=== PATIENT | female | born 2000 | race Caucasian/White ===

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

== ENCOUNTER 2019-06-29 21:32 | Emergency (ER) | payer BC ==
[2019-06-29] MEDS ORDERED: Ketorolac Tromethamine 30 MG/ML VIAL ONE (21:42)
[2019-06-29] MEDS ORDERED: Ibuprofen 200 MG TAB ONE (21:43)
[2019-06-29 21:56] LABS: Bilirubin Negative (Negative); Blood, Urine Negative (Negative); Clarity Clear (Clear); Glucose, Urine (Dipstick) Negative (Negative); Leukocyte Small (Negative); Nitrite Negative (Negative); Protein, Urine (Dipstick) Trace mg/dL (Neg-Trace)
[2019-06-29 21:58] LABS: Pregnancy Test - Urine (BHCG) Negative (Negative); Pregu Control Background? CLEAR/WHITE (CLR/WHITE); Pregu Control Bar Appear? YES (CONTROL BAR)
[2019-06-29 22:03] LABS: RBC/HPF 0-3 HPF (0-3)
[2019-06-29 22:04] LABS: Bacteria/HPF Rare-Few HPF (None Seen); Mucous/LPF 3+ LPF (<2+)
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
== END 2019-06-29 22:25 | disposition home or self-care (01) ==
LOC: BURERS 21:32
DX: M54.5 Low back pain (principal); D50.9 Iron deficiency anemia, unspecified; V86.59XA Driver of other special all-terrain or other off-road motor vehicle injured in nontraffic accident, initial encounter
CPT/HCPCS: 72100; 72170; 81003; 81015; 81025; J1885

== ENCOUNTER 2019-10-14 22:39 | Emergency (ER) | payer BC ==
[2019-10-14] MEDS ORDERED: Ketorolac Tromethamine 30 MG/ML VIAL ONE (23:00)
== END 2019-10-14 23:17 | disposition home or self-care (01) ==
LOC: BURERS 22:39
DX: G44.209 Tension-type headache, unspecified, not intractable (principal); F41.9 Anxiety disorder, unspecified; D50.9 Iron deficiency anemia, unspecified; Z79.899 Other long term (current) drug therapy
CPT/HCPCS: 99283; J1885

== ENCOUNTER 2021-04-11 07:46 | Emergency (ER) | payer BC ==
[2021-04-11] MEDS ORDERED: Ibuprofen 800 MG TAB ONE (08:08)
== END 2021-04-11 08:51 | disposition home or self-care (01) ==
LOC: BURERS 07:46
DX: S93.602A Unspecified sprain of left foot, initial encounter (principal); D50.9 Iron deficiency anemia, unspecified; W50.0XXA Accidental hit or strike by another person, initial encounter

== ENCOUNTER 2021-10-31 20:15 | Emergency (ER) | payer BC ==
[2021-10-31] MEDS ORDERED: Acetaminophen 500 MG TAB ONE (21:10)
== END 2021-10-31 21:50 | disposition home or self-care (01) ==
LOC: BURERS 20:15
DX: H53.9 Unspecified visual disturbance (principal); R51.9 Headache, unspecified
CPT/HCPCS: 70450

== ENCOUNTER 2022-01-12 09:11 | Outpatient (CLI) | payer BC | END 2022-01-12 09:12 | disposition home or self-care (01) | LOC: BURRAD 09:11 | PROVIDERS: ATTEND Physician Assistant | DX: M79.671 Pain in right foot (principal); M25.571 Pain in right ankle and joints of right foot; G89.29 Other chronic pain; Z87.828 Personal history of other (healed) physical injury and trauma ==

== ENCOUNTER 2023-07-26 14:28 | Outpatient (CLI) | payer BC | END 2023-07-26 14:29 | disposition home or self-care (01) | LOC: BURRAD 14:28 | PROVIDERS: ATTEND Nurse Practitioner Family | DX: M25.571 Pain in right ankle and joints of right foot (principal) ==

== ENCOUNTER 2025-01-22 21:31 | Emergency (ER) | payer BC | END 2025-01-22 21:51 | disposition home or self-care (01) | LOC: BURERS 21:31 | DX: S00.33XA Contusion of nose, initial encounter (principal); R29.700 NIHSS score 0; W51.XXXA Accidental striking against or bumped into by another person, initial encounter | CPT/HCPCS: 99283 ==